=== PATIENT | female | born 1985 | race Caucasian/White ===

== ENCOUNTER 2022-02-28 01:43 | Emergency (ER) | payer BC, SELFPAY ==
[2022-02-28 01:47] VITALS: BP 145/78; PULSE 85; RESP 16; TEMP 36.8; O2SAT 100; BMI 37.2
--- NOTE | 2022-02-28 02:34 | HMH.EDDENT ---
Discharge Plan Disposition Chief Complaint: Dental/Oral Prescriptions Prescriptions: No Action No Known Home Medications Referrals Follow up/Referrals: Provider,Referral, MD [Primary Care Provider] - See instructions Clinical Impressions Clinical Impression: Pain, dental Instructions Patient Instructions: DI for Dental Pain Discharge ED Provider: Ivan Carrington Dental HPI General Chief complaint: Dental/Oral Stated complaint: Toothache Time Seen by Provider: 02/28/22 02:34 Mode of Arrival: Ambulatory Source of Information: Patient and Medical Record Limitations: No Limitations Description of Symptoms (Recalled from ER Triage Doc. by RN): Pt c/o toothache for the past 3 days. Pain is coming from right molar. No facial swelling. Airway is patent. History of Present Illness HPI Narrative: has lt upper dental pain MD Complaint: tooth pain Onset (ago): day(s) Severity: moderate Related Data Home Medications Medication Instructions Recorded Confirmed No Known Home Medications 02/28/22 02/28/22 Allergies Allergy/AdvReac Type Severity Reaction Status Date / Time cephalexin [From Keflex] Allergy Verified 02/28/22 02:06 PFS PFS Surgical History (Updated 02/28/22 @ 02:08 by Reilly Desai RN) History of tonsillectomy Social History Smoking Status: Current every day smoker alcohol intake: never current occupational status: employed Travel in the last 8 weeks: None ROS Obtained: Yes All systems reviewed & no additional complaints except as documented Physical Exam General General appearance: alert Head Head exam: normocephalic Eye Eye exam: Present PERRL and EOMI Expanded ENT Exam Teeth exam: Present dental caries and gingival swelling Neck Neck exam: Present trachea midline Respiratory Respiratory exam: Absent respiratory distress Cardiovascular Cardiovascular exam: Present regular rate Neurological Exam Neurological exam: Present alert and CN II-XII intact Skin Skin exam: Absent rash Medical Decision Making Medical Records Medical records reviewed: Yes I reviewed the patient's medical records. Jamel Inquiry Pt receiving controlled substance: No Vital Signs: 02/28/22 01:47 Temperature 98.2 F Temperature Source Oral Pulse Rate [Right Radial] 85 Respiratory Rate 16 Blood Pressure [Right Arm] 145/78 H Blood Pressure Mean [Right Arm] 100 Blood Pressure Source [Right Arm] Automatic Cuff Blood Pressure Position [Right Arm] Sitting 02 Sat by Pulse Oximetry 100 Oxygen Delivery Method Room Air Lab Data Lab results reviewed: Yes I reviewed the patient's lab results. Orders (Tests/Meds): ED MEDICATIONS Discontinued Medications Generic Name Dose Route Start Last Admin Trade Name Sylvia PRN Reason Stop Dose Admin Benzocaine/Butamben/Tetracaine HCl 1 gm 02/28/22 02:10 02/28/22 02:13 Tetracaine/Benzocaine/Butamben 56 Gm [place] TP 02/28/22 02:11 1 gm ONCE ONE Administration Lidocaine HCl 15 ml 02/28/22 02:10 02/28/22 02:14 Lidocaine 2% Viscous Kassie 15ml Udc PO 02/28/22 02:11 15 ml ONCE ONE Administration Medical Decision Narrative: acute dental pain w/o abscess Critical Care Time Critical Care Time Critical Care Time: No Attestation: On 02/28/22, the high probability of a clinically significant, sudden or life threatening deterioration of the following system(s) required my full and direct attention, intervention and personal management. The time I documented below is in addition to time spent performing reported procedures but includes the following listed in this critical care notation.
[2022-02-28 02:53] VITALS: BP 145/78; PULSE 85; RESP 16; TEMP 36.8; O2SAT 98
== END 2022-02-28 02:55 | disposition home or self-care (01) ==
LOC: ER 01:58
PROVIDERS: Emergency Provider Emergency Medicine
DX: K08.89 Other specified disorders of teeth and supporting structures (principal); Z88.1 Allergy status to other antibiotic agents; Z72.0 Tobacco use
CPT/HCPCS: 99283

== ENCOUNTER 2022-04-21 13:44 | Emergency (ER) | payer BC, SELFPAY ==
[2022-04-21 13:45] VITALS: BP 133/76; PULSE 98; RESP 16; TEMP 37.2; O2SAT 100; BMI 38.9
--- NOTE | 2022-04-21 14:53 | PC.NURSE ---
PT was seen walking out of the ED. Waited for a few minutes to see if patient would return. Pt did not return and was seen in the parking lot leaving.
[2022-04-21 14:59] VITALS: BP 138/70; PULSE 82; RESP 16; TEMP 36.8; O2SAT 98
== END 2022-04-21 15:00 | disposition left against medical advice (07) ==
PROVIDERS: Emergency Provider Emergency Medicine
DX: R11.10 Vomiting, unspecified (principal); R19.7 Diarrhea, unspecified; F17.200 Nicotine dependence, unspecified, uncomplicated; Z88.8 Allergy status to other drugs, medicaments and biological substances; Z53.21 Procedure and treatment not carried out due to patient leaving prior to being seen by health care provider
CPT/HCPCS: 99211

== ENCOUNTER → 2022-07-23 22:44 | Outpatient (CLI) | payer BC, SELFPAY ==
[2022-07-23 17:38] LABS: Basophils # 0.1 K/mm3 (0-0.2); Basophils % 1.1 % (0.1-2.0); Eosinophils # 0.1 K/mm3 (0.0-0.4); Eosinophils % 1.9 % (0.1-12.0); Hematocrit 42.2 % (37.0-47.0); Hemoglobin 13.5 g/dL (12.2-16.2); Lymphocytes % 25.8 % (10-50); Mean Corpuscular Hemoglobin 28.7 pg (27.0-31.2); Mean Corpuscular Volume 89.6 fl (81-99); Mean Platelet Volume 9.3 fl (7.4-10.4); Monocytes # 0.3 K/mm3 (0.1-1.0); Monocytes % 4.3 % (1.7-9.3); Neutrophils # 5.3 K/mm3 (1.8-7.8); Platelet Count 278 K/mm3 (142-424); Red Blood Count 4.71 M/mm3 (4.20-5.40); Red Cell Distribution Width 14.1 % (11.5-17.5); White Blood Count 7.8 K/mm3 (4.8-10.8)
[2022-07-23 17:51] LABS: Alanine Aminotransferase 18 U/L (12-78); Albumin Level 4.6 g/dl (3.5-5.0); Albumin/Globulin Ratio 1.8 (1.1-1.8); Alkaline Phosphatase 85 U/L (38-126); Anion Gap 9.1 mEq/L (5-15); Aspartate Amino Transferase 21 U/L (14-36); Bilirubin,Total 0.5 mg/dl (0.2-1.3); Blood Urea Nitrogen 10 mg/dl (7-17); Calcium 9.2 mg/dl (8.4-10.2); Carbon Dioxide 27 mmol/L (22.0-30.0); Chloride 105 mmol/L (98-107); Chol/HDL Ratio 4.6 (1-3.5); Cholesterol 223 mg/dl (140-200); Estimated Glomerular Filt Rate 95 ml/min (>60); GFR (African American) 115 ML/MIN (>60); Globulin 2.5 g/dL (1.3-3.2); Glucose 72 mg/dl (74-100); HDL Cholesterol 49 mg/dl (40-60); Potassium 4.1 mmoL/L (3.5-5.1); Sodium 137 mmol/L (136-145); Total Protein,Serum 7.1 g/dl (6.3-8.2); Triglycerides 110 mg/dl (30-150); VLDL Cholesterol 22 mg/dL (0-40)
[2022-07-23 18:03] LABS: Direct LDL Cholesterol 148.35 mg/dL (100-129)
[2022-07-23 18:08] LABS: 25-OH Vitamin D, Total 18.4 ng/mL (30-100)
[2022-07-23 18:22] LABS: Thyroid Stimulating Hormone 1.19 uIU/mL (0.465-4.68)
== END ==
PROVIDERS: PCP Student in an Organized Health Care Education/Training Program; Visit Provider Student in an Organized Health Care Education/Training Program
DX: Z76.89 Persons encountering health services in other specified circumstances (principal); E55.9 Vitamin D deficiency, unspecified; Z13.220 Encounter for screening for lipoid disorders; Z13.29 Encounter for screening for other suspected endocrine disorder; Z13.1 Encounter for screening for diabetes mellitus
CPT/HCPCS: 80053; 80061; 82306; 83036; 84443; 85025

== ENCOUNTER 2023-03-02 17:40 | Emergency (ER) | payer BC, SELFPAY ==
[2023-03-02] VITALS (7 sets, daily range): BP systolic 108–123; BP diastolic 57–80; PULSE 71–85; RESP 16–20; TEMP 36.7–36.9; O2SAT 96–100; BMI 35.6
--- NOTE | 2023-03-02 18:05 | CT_ITS ---
PROCEDURE INFORMATION: Exam: CT Abdomen And Pelvis Without Contrast Exam date and time: 03/02/2023 6:54 PM Age: 37 years old Clinical indication: Abdominal pain; Flank; Right; Additional info: Concern for R sided urolithais. HX of kidney stone TECHNIQUE: Imaging protocol: Computed tomography of the abdomen and pelvis without contrast. Radiation optimization: All CT scans at this facility use at least one of these dose optimization techniques: automated exposure control; mA and/or kV adjustment per patient size (includes targeted exams where dose is matched to clinical indication); or iterative reconstruction. REPORTING DATA: Count of CT and Cardiac NM exams in prior 12 months: This patient has received 0 known CTs and 0 known cardiac nuclear medicine studies in the 12 months prior to the current study. COMPARISON: No relevant prior studies available. FINDINGS: Liver: Normal. No mass. Gallbladder and bile ducts: Normal. No calcified stones. No ductal dilation. Pancreas: Normal. No ductal dilation. Spleen: Normal. No splenomegaly. Adrenal glands: Normal. No mass. Kidneys and ureters: No obstructive uropathy or renal calculus. Stomach and bowel: Unremarkable. No obstruction. No mucosal thickening. Appendix: No evidence of appendicitis. Intraperitoneal space: Unremarkable. No free air. No significant fluid collection. Vasculature: Unremarkable. No abdominal aortic aneurysm. Lymph nodes: Unremarkable. No enlarged lymph nodes. Urinary bladder: Unremarkable as visualized. Reproductive: Unremarkable as visualized. Bones/joints: Unremarkable. No acute fracture. Soft tissues: Unremarkable. IMPRESSION: No obstructive uropathy or renal calculus.
--- NOTE | 2023-03-02 18:08 | HMH.EDGENADL ---
Discharge Plan Disposition Patient Disposition: Home, Self-Care Condition: Good Prescriptions Prescriptions: No Action sertraline 25 mg tablet 25 mg PO DAILY Qty: 30 2RF Referrals Follow up/Referrals: Kelley De La Paz PA [Primary Care Provider] - See instructions Clinical Impressions Clinical Impression: Acute flank pain Instructions Patient Instructions: DI for Acute Abdominal Pain Discharge ED Provider: Jacob Alves Adult HPI General Chief complaint: Abdominal Pain Stated complaint: poss kidney stones, abd back pain Time Seen by Provider: 03/02/23 17:58 History of Present Illness HPI narrative: Patient presents for evaluation of right-sided flank pain, radiating to groin, gradual in onset starting today, intermittent, stable in course, with associated dysuria, no vaginal bleeding or discharge, has had similar symptoms in the remote past secondary to urolithiasis of unknown size. Otherwise no chronic medical issues, no belly pain, no constipation or diarrhea, no previous therapies. No pain elsewhere. No trauma. No numbness or tingling. Related Data Previous Rx's Medication Instructions Recorded sertraline 25 mg tablet 25 mg PO DAILY #30 tabs 07/23/22 Allergies Allergy/AdvReac Type Severity Reaction Status Date / Time cephalexin [From Keflex] Allergy Verified 07/23/22 09:47 [facility] Disclaimer: The information contained in this section may have been updated after the patient was seen, as this information can be updated by other users. Medical History (Updated 03/02/23 @ 20:29 by Jacob Alves MD) Substance abuse Surgical History (Updated 02/28/22 @ 02:08 by Reilly Desai RN) History of tonsillectomy Social History (Updated 07/23/22 @ 09:48 by Sandra Peña MA) Smoking Status: Current every day smoker alcohol intake: never substance use type: denies use current occupational status: employed and unemployed Travel in the last 8 weeks: None household members: spouse housing: house lives independently: Yes marital status: number of children: 2 ROS Obtained: Yes Systems reviewed as appropriate & no additional complaints except as documented Physical Exam General General appearance: alert and in no apparent distress Neck Neck exam: Present normal inspection and full ROM Chest Chest inspection: Present normal inspection and symmetric chest wall rise Respiratory Respiratory exam: Absent respiratory distress Cardiovascular Cardiovascular exam: Present regular rate and normal rhythm Abdominal Exam Abdominal exam: Present other (Mild right CVA tenderness to percussion, otherwise no distention, guarding, rebound, rigidity, pain elsewhere) Neurological Exam Neurological exam: Present alert and oriented X3 Medical Decision Making Medical Records Medical records reviewed: Yes I reviewed the patient's medical records. Jamel Inquiry Pt receiving controlled substance: No Jamel was queried for this patient: No Vital Signs: 03/02/23 17:41 03/02/23 18:00 03/02/23 18:30 Temperature 98.5 F Temperature Source Oral Pulse Rate 84 77 Pulse Rate [Right] 78 Respiratory Rate 16 16 16 Blood Pressure 113/67 108/57 L Blood Pressure [Right Arm] 123/80 Blood Pressure Mean 92 74 Blood Pressure Mean [Right Arm] 94 Blood Pressure Source Blood Pressure Source [Right Arm] Automatic Cuff Blood Pressure Position Blood Pressure Position [Right Arm] Sitting 02 Sat by Pulse Oximetry 100 100 100 Oxygen Delivery Method Room Air Room Air Room Air 03/02/23 19:01 03/02/23 19:30 03/02/23 20:00 Temperature Temperature Source Pulse Rate 71 74 85 Pulse Rate [Right] Respiratory Rate 17 18 20 Blood Pressure 110/64 109/80 L 120/74 Blood Pressure [Right Arm] Blood Pressure Mean 83 92 90 Blood Pressure Mean [Right Arm] Blood Pressure Source Blood Pressure Source [Right Arm] Blood Pressure Position
[2023-03-02 18:11] LABS: Microscopic, Urine URINE MICROSCOPIC (MICROSCOPIC)
[2023-03-02 18:22] LABS: Appearance,Urine CLEAR (Clear); Bilirubin,Urine Negative (Negative); Blood, Urine TRACE-I (Negative); Color,Urine YELLOW (Yellow); Glucose,Urine (UA) Negative (Negative); Ketones,Urine Negative (Negative); Leukocyte Esterase,Urine 2+ (Negative); Nitrate,Urine Negative (Negative); Protein,Urine Negative (Negative); Urobilinogen,Urine 0.2 EU/dl (0.2)
--- NOTE | 2023-03-02 18:27 | PC.NURSE ---
Warm blankets and pillow provided to patient. Call light within reach of patient
[2023-03-02 18:40] LABS: Basophils # 0.1 K/mm3 (0-0.2); Basophils % 0.7 % (0.1-2.0); Eosinophils # 0.1 K/mm3 (0.0-0.4); Eosinophils % 1.7 % (0.1-12.0); Hematocrit 44.8 % (37.0-47.0); Hemoglobin 14.2 g/dL (12.2-16.2); Lymphocytes # 2.5 K/mm3 (0.7-4.5); Lymphocytes % 29.7 % (10-50); Mean Corpuscular HGB Conc 31.8 g/dL (31.8-35.4); Mean Corpuscular Hemoglobin 27.9 pg (27.0-31.2); Mean Corpuscular Volume 87.9 fl (81-99); Mean Platelet Volume 8.4 fl (7.4-10.4); Monocytes # 0.3 K/mm3 (0.1-1.0); Monocytes % 3.7 % (1.7-9.3); Neutrophils # 5.4 K/mm3 (1.8-7.8); Neutrophils % 64.2 % (37.0-80.0); Platelet Count 274 K/mm3 (142-424); Red Blood Count 5.09 M/mm3 (4.20-5.40); Red Cell Distribution Width 13.1 % (11.5-17.5); White Blood Count 8.4 K/mm3 (4.8-10.8)
[2023-03-02 18:47] LABS: Chloride 102 mmol/L (98-107); Potassium 4.3 mmoL/L (3.5-5.1); Sodium 138 mmol/L (136-145)
[2023-03-02 18:49] LABS: Blood Urea Nitrogen 15 mg/dl (7-17); Creatinine Clearance Estimated 141 mL/min (50-200); Estimated Glomerular Filt Rate 82 ml/min (>60); GFR (African American) 99 ML/MIN (>60); HCG Qualitative, Serum Negative (Negative)
[2023-03-02 18:50] LABS: Alanine Aminotransferase 22 U/L (12-78); Albumin Level 4.5 g/dl (3.5-5.0); Albumin/Globulin Ratio 1.6 (1.1-1.8); Alkaline Phosphatase 69 U/L (38-126); Anion Gap 12.3 mEq/L (5-15); Aspartate Amino Transferase 29 U/L (14-36); Bilirubin,Total 0.4 mg/dl (0.2-1.3); Calcium 9.3 mg/dl (8.4-10.2); Carbon Dioxide 28 mmol/L (22.0-30.0); Globulin 2.9 g/dL (1.3-3.2); Glucose 89 mg/dl (74-100); Total Protein,Serum 7.4 g/dl (6.3-8.2)
[2023-03-02 18:56] LABS: Bacteria,Urine Trace /lpf; RBC,Urine Occasional #/hpf (0-3)
--- NOTE | 2023-03-10 09:50 | PC.NURSE ---
notified Dr Dooley of urine culture results- states mixed urogenital matias Dr. Dooley states is a contaminant, no action needed.
== END 2023-03-02 20:45 | disposition home or self-care (01) ==
PROVIDERS: Emergency Provider Emergency Medicine; PCP Student in an Organized Health Care Education/Training Program
DX: R10.9 Unspecified abdominal pain (principal); R30.0 Dysuria; F17.200 Nicotine dependence, unspecified, uncomplicated
CPT/HCPCS: 74176; 80053; 81001; 84703; 85025; 87086; 96374; 99285